=== PATIENT | female | born 1985 | race Caucasian/White ===

== ENCOUNTER 2020-12-18 06:38 | Emergency (ER) | payer BC ==
--- NOTE | 2020-12-18 08:09 | EDM.PDOC ---
ED HPI GENERAL MEDICAL PROBLEM - General Chief Complaint: Flank Pain Stated Complaint: BACK AND SIDE PAIN Time Seen by Provider: 12/18/20 07:15 Source of Information: Reports: Patient - History of Present Illness INITIAL COMMENTS - FREE TEXT/NARRATIVE: 35-year-old lady came to the emergency department evaluation of right-sided pain and right flank pain that started last night. He said that it started yesterday evening and by 1:00 in the morning it was much worse. She took some Aleve at home with only mild and temporary relief. She does have a history of renal stones once in her past and states that this is much worse. She denies any dysuria, fever, chills, upper respiratory symptoms, chest pain, shortness of breath, vaginal discharge, change in bowel or bladder habits. 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 R flank Pain Score (Numeric/FACES): 8 - Related Data Allergies Allergy/AdvReac Type Severity Reaction Status Date / Time codeine Allergy Hives Verified 12/18/20 06:50 Home Meds: Home Meds Multivitamin [Multi-Day Vitamins] 1 each PO DAILY 12/18/20 [History] Past Medical History Genitourinary History: Reports: Renal Calculus Neurological History: Reports: Concussion, Migraines Endocrine/Metabolic History: Reports: Obesity/BMI 30+ - Infectious Disease History Infectious Disease History: Reports: Shingles - Past Surgical History HEENT Surgical History: Reports: Oral Surgery Social & Family History - Family History Family Medical History: No Pertinent Family History - Tobacco Use Tobacco Use Status *Q: Current Every Day Tobacco User Years of Tobacco use: 27 Packs/Tins Daily: 0.5 - Caffeine Use Caffeine Use: Reports: Coffee, Energy Drinks, Soda, Tea - Recreational Drug Use Recreational Drug Use: No ED ROS GENERAL - Review of Systems Review Of Systems: See Below Constitutional: Reports: No Symptoms HEENT: Reports: No Symptoms Respiratory: Reports: No Symptoms Cardiovascular: Reports: No Symptoms Endocrine: Reports: No Symptoms GI/Abdominal: Reports: Abdominal Pain : Reports: Flank Pain Musculoskeletal: Reports: No Symptoms Skin: Reports: No Symptoms Psychiatric: Reports: No Symptoms Hematologic/Lymphatic: Reports: No Symptoms Immunologic: Reports: No Symptoms ED EXAM, RENAL/ - Physical Exam Exam: See Below Exam Limited By: No Limitations General Appearance: Alert, WD/WN, No Apparent Distress Eye Exam: Bilateral Eye: EOMI Head: Atraumatic, Normocephalic Neck: Normal Inspection Respiratory/Chest: No Respiratory Distress, Lungs Clear Cardiovascular: Regular Rate, Rhythm, No Murmur GI/Abdominal: Normal Bowel Sounds, Soft, Tender Back Exam: CVA Tenderness (R). No: CVA Tenderness (L) Extremities: Pedal Edema Neurological: Alert, Oriented, CN II-XII Intact, Normal Cognition, Normal Gait Psychiatric: Normal Affect, Normal Mood Skin Exam: Warm, Dry Course - Vital Signs Last Recorded V/S: Last Vital Signs Temp 36.3 C 12/18/20 06:44 Pulse 89 12/18/20 06:44 Resp 20 12/18/20 06:44 BP 156/101 H 12/18/20 06:44 Pulse Ox 99 12/18/20 06:44 - Orders/Labs/Meds Orders: Active Orders 24 hr Category Date Time Status Abdomen Pelvis wo Cont [CT] Stat Exams 12/18/20 08:02 Ordered CBC WITH AUTO DIFF [HEME] Stat Lab 12/18/20 08:02 Ordered COMPREHENSIVE METABOLIC PN,CMP [CHEM] Stat Lab 12/18/20 08:02 Ordered Labs: Laboratory Tests 12/18/20 Range/Units 07:05 Urine Color Yellow (YELLOW) Urine Appearance Clear (CLEAR) Urine pH 6.0 (5.0-6.5) Ur Specific [place] 1.015 (1.010-1.025) Urine Protein Negative (NEGATIVE) mg/dL Urine Glucose (UA) Normal (NORMAL) mg/dL Urine Ketones Negative (NEGATIVE) mg/dL Urine Occult Blood Negative (NEGATIVE) Urine Nitrite Negative (NEGATIVE) Urine Bilirubin Negative (NEGATIVE) Urine Urobilinogen Normal (NEGATIVE) mg/dL Ur Leukocyte Esterase Negative (NEGATIVE) Urine RBC Not seen (0-5) Urine WBC 0-5 (0-5) Ur Squamous Epith Cells Few H (NS,R,O) Urine Bacteria Rare H (NS) Departure - Discharge Information Sepsis Event Note (ED) - Evaluation Sepsis Screening Result: No Definite Risk - Focused Exam Vital Signs: Vital Signs Temp Pulse Resp BP Pulse Ox 12/18/20 06:44 36.3 C 89 20 156/101 H 99 - My Orders Last 24 Hours: My Active Orders 12/18/20 08:02 Abdomen Pelvis wo Cont [CT] Stat CBC WITH AUTO DIFF [HEME] Stat COMPREHENSIVE METABOLIC PN,CMP [CHEM] Stat - Assessment/Plan Last 24 Hours: My Active Orders 12/18/20 08:02 Abdomen Pelvis wo Cont [CT] Stat CBC WITH AUTO DIFF [HEME] Stat COMPREHENSIVE METABOLIC PN,CMP [CHEM] Stat
--- NOTE | 2020-12-18 09:30 | EDM.PDOC ---
ED HPI GENERAL MEDICAL PROBLEM - General Chief Complaint: Flank Pain Stated Complaint: BACK AND SIDE PAIN Time Seen by Provider: 12/18/20 07:15 Source of Information: Reports: Patient - History of Present Illness INITIAL COMMENTS - FREE TEXT/NARRATIVE: 35-year-old lady came to the emergency department evaluation of right-sided pain and right flank pain that started last night. He said that it started yesterday evening and by 1:00 in the morning it was much worse. She took some Aleve at home with only mild and temporary relief. She does have a history of renal stones once in her past and states that this is much worse. She denies any dysuria, fever, chills, upper respiratory symptoms, chest pain, shortness of breath, vaginal discharge, change in bowel or bladder habits. 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 R flank Pain Score (Numeric/FACES): 8 - Related Data Allergies Allergy/AdvReac Type Severity Reaction Status Date / Time codeine Allergy Hives Verified 12/18/20 06:50 Home Meds: Home Meds Multivitamin [Multi-Day Vitamins] 1 each PO DAILY 12/18/20 [History] Past Medical History Genitourinary History: Reports: Renal Calculus Neurological History: Reports: Concussion, Migraines Endocrine/Metabolic History: Reports: Obesity/BMI 30+ - Infectious Disease History Infectious Disease History: Reports: Shingles - Past Surgical History HEENT Surgical History: Reports: Oral Surgery Social & Family History - Family History Family Medical History: No Pertinent Family History - Tobacco Use Tobacco Use Status *Q: Current Every Day Tobacco User Years of Tobacco use: 27 Packs/Tins Daily: 0.5 - Caffeine Use Caffeine Use: Reports: Coffee, Energy Drinks, Soda, Tea - Recreational Drug Use Recreational Drug Use: No ED ROS GENERAL - Review of Systems Review Of Systems: See Below Constitutional: Reports: No Symptoms HEENT: Reports: No Symptoms Respiratory: Reports: No Symptoms Cardiovascular: Reports: No Symptoms Endocrine: Reports: No Symptoms GI/Abdominal: Reports: Abdominal Pain : Reports: Flank Pain Musculoskeletal: Reports: No Symptoms Skin: Reports: No Symptoms Neurological: Reports: No Symptoms Psychiatric: Reports: No Symptoms Hematologic/Lymphatic: Reports: No Symptoms Immunologic: Reports: No Symptoms ED EXAM, RENAL/ - Physical Exam Exam: See Below Exam Limited By: No Limitations General Appearance: Alert, WD/WN, No Apparent Distress Eye Exam: Bilateral Eye: EOMI Head: Atraumatic, Normocephalic Neck: Normal Inspection Respiratory/Chest: No Respiratory Distress, Lungs Clear Cardiovascular: Regular Rate, Rhythm, No Murmur GI/Abdominal: Normal Bowel Sounds, Tender Back Exam: CVA Tenderness (R). No: CVA Tenderness (L) Extremities: Pedal Edema Neurological: Alert, Oriented, CN II-XII Intact, Normal Cognition, Normal Gait Psychiatric: Normal Affect, Normal Mood Skin Exam: Warm, Dry, Intact Course - Vital Signs Text/Narrative:: Review of urinalysis, CBC, and CMP is grossly unremarkable. Patient does have mildly elevated AST and ALT. However, CT shows fatty liver disease and possible nephrocalcinosis on the right. No obvious renal stones at this time and no hydroureter bilaterally. Last Recorded V/S: Last Vital Signs Temp 36.3 C 12/18/20 06:44 Pulse 89 12/18/20 06:44 Resp 20 12/18/20 06:44 BP 156/101 H 12/18/20 06:44 Pulse Ox 99 12/18/20 06:44 - Orders/Labs/Meds Orders: Active Orders 24 hr Category Date Time Status Abdomen Pelvis wo Cont [CT] Stat Exams 12/18/20 08:02 Ordered Labs: Laboratory Tests 12/18/20 12/18/20 12/18/20 Range/Units 07:05 08:25 08:25 WBC 8.4 (3.0-10.3) x10-3/uL RBC 4.70 (3.60-5.20) x10(6)uL Hgb 13.1 (11.4-15.5) g/dL Hct 40.0 (34.2-48.2) % MCV 85.2 (76.7-100.5) fL MCH 27.8 (23.9-33.9) pg MCHC 32.7 (31.9-34.8) g/dL RDW 14.4 (12.3-16.5) % Plt Count 386 (151-488) x10(3)uL MPV 5.9 L (7.1-12.4) fL Neut % (Auto) 53.6 (30.8-76.2) % Lymph % (Auto) 33.5 (18.4-52.1) % [place] % (Auto) 9.0 (4.4-15.7) % Eos % (Auto) 3.2 (0.6-8.1) % Baso % (Auto) 0.7 (0.2-1.5) % Neut # (Auto) 4.5 (1.5-6.3) x10-3/uL Lymph # (Auto) 2.8 (1.0-4.4) x10-3/uL [place] # (Auto) 0.8 (0.3-1.0) x10-3/uL Eos # (Auto) 0.3 (0.0-0.8) x10-3/uL Baso # (Auto) 0.1 (0.0-0.1) x10-3/uL Sodium 139 (135-145) mmol/L Potassium 4.4 (3.5-5.3) mmol/L Chloride 103 (100-110) mmol/L Carbon Dioxide 29 (21-32) mmol/L BUN 9 (7-18) mg/dL Creatinine 0.7 (0.55-1.02) mg/dL Est Cr Clr Drug Dosing 99.98 mL/min Estimated GFR (MDRD) > 60 (>60) BUN/Creatinine Ratio 12.9 (9-20) Glucose 99 (80-116) mg/dL Calcium 8.9 (8.6-10.2) mg/dL Total Bilirubin 0.3 (0.1-1.3) mg/dL AST 32 H (5-25) IU/L ALT 56 H (12-36) U/L Alkaline Phosphatase 51 L (56-112) IU/L Total Protein 7.6 (6.0-8.0) g/dL Albumin 3.4 L (3.5-5.2) g/dL Globulin 4.2 g/dL Albumin/Globulin Ratio 0.8 Urine Color Yellow (YELLOW) Urine Appearance Clear (CLEAR) Urine pH 6.0 (5.0-6.5) Ur Specific [place] 1.015 (1.010-1.025) Urine Protein Negative (NEGATIVE) mg/dL Urine Glucose (UA) Normal (NORMAL) mg/dL Urine Ketones Negative (NEGATIVE) mg/dL Urine Occult Blood Negative (NEGATIVE) Urine Nitrite Negative (NEGATIVE) Urine Bilirubin Negative (NEGATIVE) Urine Urobilinogen Normal (NEGATIVE) mg/dL Ur Leukocyte Esterase Negative (NEGATIVE) Urine RBC Not seen (0-5) Urine WBC 0-5 (0-5) Ur Squamous Epith Cells Few H (NS,R,O) Urine Bacteria Rare H (NS) Departure - Departure Time of Disposition: : Disposition: Home, Self-Care 01 Condition: Good Clinical Impression: Nephrocalcinosis - Discharge Information *PRESCRIPTION DRUG MONITORING PROGRAM REVIEWED*: Not Applicable *COPY OF PRESCRIPTION DRUG MONITORING REPORT IN PATIENT EDE: Not Applicable Instructions: Kidney Stones, [id number], Flank Pain, Adult, [id number] Forms: ED Department Discharge Additional Instructions: I informed the patient of the results of the CT as listed above. I explained to her that she likely is developing small kidney stones at this time that she will have intermittent bouts of pain as she described above and will likely passed the smaller stones. However, I informed her that if she continues to have these problems she would likely have larger stones in the future that can cause significantly more pain and possible damage to her kidneys leading to medical in tervention that can be painful and expensive. I advised her to find a primary care physician and adjust her diet appropriately to try to prevent the formation of stones in the future. Sepsis Event Note (ED) - Evaluation Sepsis Screening Result: No Definite Risk - Focused Exam Vital Signs: Vital Signs Temp Pulse Resp BP Pulse Ox 12/18/20 06:44 36.3 C 89 20 156/101 H 99 - My Orders Last 24 Hours: My Active Orders 12/18/20 08:02 Abdomen Pelvis wo Cont [CT] Stat - Assessment/Plan Last 24 Hours: My Active Orders 12/18/20 08:02 Abdomen Pelvis wo Cont [CT] Stat
== END 2020-12-18 09:35 | disposition home or self-care (01) ==
LOC: FB.ED 06:38
DX: E83.59 Other disorders of calcium metabolism (principal); N29 Other disorders of kidney and ureter in diseases classified elsewhere; E66.9 Obesity, unspecified; Z68.42 Body mass index [BMI] 45.0-49.9, adult; Z72.0 Tobacco use; Z88.5 Allergy status to narcotic agent
CPT/HCPCS: 36415; 74176; 80053; 81001; 85025; 99284-25

== ENCOUNTER 2021-01-15 19:55 | Emergency (ER) | payer BC ==
[2021-01-15] MEDS ORDERED: Ketorolac 30 MG/ML SDV IM STA (20:19)
[2021-01-15] MEDS ORDERED: Cyclobenzaprine 10 MG Tab PO STA (20:19)
[2021-01-15] MEDS ORDERED: Acetaminophen/HYDROcodone 325-5 MG Tab PO STA (20:19)
--- NOTE | 2021-01-15 21:04 | EDM.PDOC ---
ED HPI GENERAL MEDICAL PROBLEM - General Chief Complaint: Neck Problem Stated Complaint: NECK PAIN, STIFF CANT MOVE Time Seen by Provider: 01/15/21 20:10 Source of Information: Reports: Patient History Limitations: Reports: No Limitations - History of Present Illness INITIAL COMMENTS - FREE TEXT/NARRATIVE: Patient presented to the ED because of neck pain for 2 days. She has hard time moving her neck either way because of the spasm. There is no shock like sensation, fever, chills. No headache. - Related Data Allergies Allergy/AdvReac Type Severity Reaction Status Date / Time codeine Allergy Hives Verified 01/15/21 20:13 ibuprofen Allergy Hives Verified 01/15/21 20:14 fish Allergy Anaphylactic Uncoded 01/15/21 20:16 Shock peaches Allergy Hives Uncoded 01/15/21 20:15 seafood Allergy Anaphylactic Uncoded 01/15/21 20:17 Shock shellfish Allergy Anaphylactic Uncoded 01/15/21 20:16 Shock vegetables Allergy Hives Uncoded 01/15/21 20:15 Home Meds: Home Meds Multivitamin [Multi-Day Vitamins] 1 each PO DAILY 12/18/20 [History] Cyclobenzaprine [Flexeril] 10 mg PO TID PRN #15 tab 01/15/21 [Rx] Naproxen 500 mg PO BID PRN #15 tablet 01/15/21 [Rx] Past Medical History Genitourinary History: Reports: Renal Calculus Neurological History: Reports: Concussion, Migraines Endocrine/Metabolic History: Reports: Obesity/BMI 30+ - Infectious Disease History Infectious Disease History: Reports: Shingles - Past Surgical History HEENT Surgical History: Reports: Oral Surgery Social & Family History - Family History Family Medical History: No Pertinent Family History - Caffeine Use Caffeine Use: Reports: Coffee, Energy Drinks, Soda, Tea ED ROS GENERAL - Review of Systems Review Of Systems: See Below Constitutional: Reports: No Symptoms HEENT: Reports: No Symptoms Respiratory: Reports: No Symptoms Cardiovascular: Reports: No Symptoms Endocrine: Reports: No Symptoms GI/Abdominal: Reports: No Symptoms : Reports: No Symptoms Musculoskeletal: Reports: Neck Pain Skin: Reports: No Symptoms Neurological: Reports: No Symptoms Psychiatric: Reports: No Symptoms Hematologic/Lymphatic: Reports: No Symptoms ED EXAM, GENERAL - Physical Exam Exam: See Below Exam Limited By: No Limitations General Appearance: Alert, No Apparent Distress Eye Exam: Bilateral Eye: PERRL Ears: Normal External Exam, Normal Canal, Normal TMs Nose: Normal Inspection, Normal Mucosa, No Blood Throat/Mouth: Normal Inspection, Normal Lips, Normal Teeth, Normal Gums, Normal Oropharynx, Normal Voice Head: Atraumatic, Normocephalic Neck: Normal Inspection, Full Range of Motion, Limited Range of Motion, Tender Lateral, Tender Midline Respiratory/Chest: No Respiratory Distress, Lungs Clear, Normal Breath Sounds, No Accessory Muscle Use, Chest Non-Tender Cardiovascular: Normal Peripheral Pulses, Regular Rate, Rhythm, No Edema, No Gallop, No JVD, No Murmur, No Rub GI/Abdominal: Normal Bowel Sounds, Soft, Non-Tender, No Organomegaly, No Distention, No Abnormal Bruit, No Mass Back Exam: Normal Inspection, Full Range of Motion Extremities: Normal Inspection, Normal Range of Motion, Non-Tender, No Pedal Edema, Normal Capillary Refill Neurological: Alert, Oriented, CN II-XII Intact, Normal Cognition Psychiatric: Normal Affect, Normal Mood Skin Exam: Warm, Dry Course - Vital Signs Text/Narrative:: Toradol 60 mg IM x1 Flexeril 10 mg PO x1 [place] 5 mg, 2 PO x1 Last Recorded V/S: Last Vital Signs Temp 36.8 C 01/15/21 20:05 Pulse 89 01/15/21 20:05 Resp 18 01/15/21 20:05 BP 148/80 H 01/15/21 20:05 Pulse Ox 96 01/15/21 20:05 - Orders/Labs/Meds Meds: Medications Discontinued Medications Generic Name Dose Route Start Last Admin Trade Name Otto PRN Reason Stop Dose Admin Hydrocodone Bitart/Acetaminophen 2 tab 01/15/21 20:19 01/15/21 20:27 Acetaminophen/Hydrocodone 325-5 Mg Tab PO 01/15/21 20:20 2 tab NOW STA Administration Cyclobenzaprine HCl 10 mg 01/15/21 20:19 01/15/21 20:27 Cyclobenzaprine 10 Mg Tab PO 01/15/21 20:20 10 mg NOW STA Administration Ketorolac Tromethamine 60 mg 01/15/21 20:19 01/15/21 20:27 Ketorolac 30 Mg/Ml Sdv IM 01/15/21 20:20 60 mg NOW STA Administration Departure - Departure Time of Disposition: 21:10 Disposition: Home, Self-Care 01 Condition: Good Clinical Impression: Torticollis - Discharge Information Prescriptions: Cyclobenzaprine [Flexeril] 10 mg PO TID PRN #15 tab PRN Reason: Muscle Spasm - Painful Naproxen 500 mg PO BID PRN #15 tablet PRN Reason: Pain Instructions: Cervical Sprain, [id number] Additional Instructions: Please read discharge instructions on Acute cervical muscle strain Apply ice or heat. Do the neck rage of motion exercise 3 times daily Take all the following medicines at the same time for better pain relief Naproxen(aleve) 500 mg twice daily Tylenol 1000 mg and Flexeril 10 mg every 8 hours as needed for pain and spasm Follow up as needed Sepsis Event Note (ED) - Evaluation Sepsis Screening Result: No Definite Risk - Focused Exam Vital Signs: Vital Signs Temp Pulse Resp BP Pulse Ox 01/15/21 20:05 36.8 C 89 18 148/80 H 96
== END 2021-01-15 21:15 | disposition home or self-care (01) ==
LOC: FB.ED 19:55
DX: M43.6 Torticollis (principal); E66.9 Obesity, unspecified; Z91.018 Allergy to other foods; Z91.013 Allergy to seafood; Z88.5 Allergy status to narcotic agent; Z68.42 Body mass index [BMI] 45.0-49.9, adult
CPT/HCPCS: 96372; 99283; A9270; J1885

== ENCOUNTER 2021-04-01 09:29 | Emergency (ER) | payer BC | END 2021-04-01 10:34 | LOC: FB.ED 09:29 | DX: M79.662 Pain in left lower leg (principal); D50.9 Iron deficiency anemia, unspecified; E66.9 Obesity, unspecified; Z68.42 Body mass index [BMI] 45.0-49.9, adult; Z72.0 Tobacco use; Z88.5 Allergy status to narcotic agent; Z88.6 Allergy status to analgesic agent; Z91.013 Allergy to seafood; Z91.018 Allergy to other foods; Z79.899 Other long term (current) drug therapy | CPT/HCPCS: 99283 ==

== ENCOUNTER 2022-05-13 02:33 | Emergency (ER) | payer BC ==
[2022-05-13] MEDS ORDERED: Acetaminophen/HYDROcodone 325-5 MG Tab PO ONE (02:34)
[2022-05-13] MEDS ORDERED: Ketorolac 30 MG/ML SDV IM ONE (02:53)
[2022-05-13] MEDS ORDERED: Ondansetron 4 MG/2 ML SDV IM ONE (02:53)
== END 2022-05-13 03:31 | disposition home or self-care (01) ==
LOC: FB.ED 02:33
DX: G44.209 Tension-type headache, unspecified, not intractable (principal); E66.9 Obesity, unspecified; Z68.42 Body mass index [BMI] 45.0-49.9, adult; Z88.5 Allergy status to narcotic agent; Z91.013 Allergy to seafood; Z91.018 Allergy to other foods
CPT/HCPCS: 96372; 99283; A9270; J1885; J2405

== ENCOUNTER 2023-08-30 11:00 | Emergency (ER) | payer BC | END 2023-08-30 11:36 | disposition home or self-care (01) | LOC: FB.ED 11:00 | DX: S76.111A Strain of right quadriceps muscle, fascia and tendon, initial encounter (principal); E66.9 Obesity, unspecified; F17.210 Nicotine dependence, cigarettes, uncomplicated; Z79.899 Other long term (current) drug therapy; Z68.42 Body mass index [BMI] 45.0-49.9, adult; Z88.5 Allergy status to narcotic agent; Z91.018 Allergy to other foods; Z91.013 Allergy to seafood; Z88.6 Allergy status to analgesic agent; X50.9XXA Other and unspecified overexertion or strenuous movements or postures, initial encounter | CPT/HCPCS: 99283 ==

== ENCOUNTER 2024-07-10 07:20 | Emergency (ER) | payer BC ==
[2024-07-10 08:14] LABS: BASOPHILS ABSOLUTE AUTO 0.1 x10-3/uL (0.0-0.1); BASOPHILS PERCENT AUTO 1.4 % (0.2-1.5); EOSINOPHILS ABSOLUTE AUTO 0.4 x10-3/uL (0.0-0.8); EOSINOPHILS PERCENT AUTO 4.2 % (0.6-8.1); HEMATOCRIT 33.9 % (34.2-48.2); HEMOGLOBIN 11.1 g/dL (11.4-15.5); LYMPHOCYTES PERCENT AUTO 34.3 % (18.4-52.1); MEAN CORPUSCULAR HEMOGLOBIN 23.7 pg (23.9-33.9); MEAN CORPUSCULAR HGB CONC 32.7 g/dL (31.9-34.8); MEAN CORPUSCULAR VOLUME 72.6 fL (76.7-100.5); MEAN PLATELET VOLUME 6.6 fL (7.1-12.4); MONOCYTES ABSOLUTE AUTO 0.8 x10-3/uL (0.3-1.0); MONOCYTES PERCENT AUTO 9.8 % (4.4-15.7); NEUTROPHILS ABSOLUTE AUTO 4.3 x10-3/uL (1.5-6.3); NEUTROPHILS PERCENT AUTO 50.3 % (30.8-76.2); PLATELET COUNT,PLT 508 x10(3)uL (151-488); RED CELL DISTRIBUTION WIDTH 17.1 % (12.3-16.5); WHITE BLOOD CELL COUNT,WBC 8.6 x10-3/uL (3.0-10.3)
[2024-07-10 08:18] LABS: BLOOD UREA NITROGEN,BUN 11 mg/dL (7-18); BUN/CREATININE RATIO 13.8 (9-20); CALCIUM 8.9 mg/dL (8.6-10.2); CARBON DIOXIDE,CO2 27 mmol/L (21-32); CHLORIDE,CL 103 mmol/L (100-110); CREATININE 0.8 mg/dL (0.55-1.02); ESTIMATED GFR 96 mL/min (>60); GLUCOSE RANDOM 98 mg/dL (80-116); POTASSIUM,K 4.1 mmol/L (3.5-5.3); SODIUM,NA 137 mmol/L (135-145)
[2024-07-10 08:19] LABS: BILIRUBIN,URINE NEGATIVE (NEGATIVE); GLUCOSE,URINE NORMAL (NORMAL); KETONES,URINE NEGATIVE (NEGATIVE); LEUKOCYTE ESTERASE,URINE NEGATIVE (NEGATIVE); NITRITE,URINE NEGATIVE (NEGATIVE); OCCULT BLOOD,URINE NEGATIVE (NEGATIVE); PROTEIN,URINE NEGATIVE (NEGATIVE); UROBILINOGEN,URINE NORMAL (NEGATIVE)
[2024-07-10 08:24] LABS: A/G RATIO 0.8; ALANINE AMINOTRANSFERASE,ALT 25 U/L (12-36); ALBUMIN 3.5 g/dL (3.5-5.2); ALKALINE PHOSPHATASE 58 IU/L (56-112); ASPARTATE AMNIOTRANSFERASE,AST 23 IU/L (5-25); BILIRUBIN TOTAL 0.3 mg/dL (0.1-1.3); PROTEIN TOTAL,TP 7.8 g/dL (6.0-8.0)
[2024-07-10 08:26] LABS: APPEARANCE,URINE CLEAR (CLEAR); BACTERIA,URINE RARE (NS); COLOR,URINE YELLOW (YELLOW); RBC,URINE NOT SEEN (0-5); SQUAMOUS EPITHELIAL CELLS,UR MODERATE (NS,R,O); WBC,URINE 0-5 (0-5)
[2024-07-10 08:26] LABS: RED BLOOD CELL COUNT 4.67 x10(6)uL (3.60-5.20)
== END 2024-07-10 08:56 | disposition home or self-care (01) ==
LOC: FB.ED 07:20
DX: R10.32 Left lower quadrant pain (principal); E66.9 Obesity, unspecified; F17.200 Nicotine dependence, unspecified, uncomplicated; Z88.5 Allergy status to narcotic agent; Z88.8 Allergy status to other drugs, medicaments and biological substances; Z91.013 Allergy to seafood; Z88.6 Allergy status to analgesic agent; Z91.018 Allergy to other foods; Z79.899 Other long term (current) drug therapy
CPT/HCPCS: 36415; 80053; 81001; 85025; 86140; 99284

== ENCOUNTER 2024-12-11 23:58 | Emergency (ER) | payer BC | END 2024-12-12 01:07 | disposition home or self-care (01) | LOC: FB.ED 23:58 | DX: R55 Syncope and collapse (principal); R42 Dizziness and giddiness; R03.0 Elevated blood-pressure reading, without diagnosis of hypertension; E66.9 Obesity, unspecified; Z79.899 Other long term (current) drug therapy; Z91.013 Allergy to seafood; Z91.018 Allergy to other foods; Z88.5 Allergy status to narcotic agent; Z88.6 Allergy status to analgesic agent; Z68.42 Body mass index [BMI] 45.0-49.9, adult | CPT/HCPCS: 82947; 93005; 99284 ==